=== PATIENT | male | born 1930 | race Caucasian/White ===

== ENCOUNTER 2017-06-04 11:36 | Inpatient (IN) | payer OTHER, MEDICARE ==
[~2017-06-04] VITALS: Ht 172.7 cm; Wt 70.4 kg
--- NOTE | ~2017-06-04 | EKG ---
[address] [address] ELECTROCARDIOGRAM REPORT Name: SAHARA DEVINE Room #: 432-P ADM IN M.R.#: [id number] Admission: 06/04/17 Attend Phys: Beni Winslow MD Discharge: Date of : [birth year] Report #: [id number] THIS REPORT FOR: //name// [facility] ED Test Date: 2017-06-04 Test Time: 12:02:18 Pat Name: SAHARA DEVINE Department: Room: [facility] Gender: M Epic Cadence Analyst: MARIBEL : 1930 Requested By: Aman Rebolledo Order Number: [id number] MD: Bhargav Han Measurements Intervals [place] Rate: 74 P: 9 MI: 154 QRS: 9 QRSD: 80 T: 28 QT: 381 QTc: 423 Interpretive Statements Sinus rhythm Normal tracing Compared to ECG 05/05/2005 12:46:47 Sinus bradycardia no longer present Electronically Signed On 06-05-2017 8:32:49 [employer]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
--- NOTE | ~2017-06-04 | HC ---
[facility] [place] [address] CONSULTATION Name: SAHARA DEVINE Room #: 432-P ADM IN M.R.#: [id number] Admission: 06/04/17 Attend Phys: Beni Winslow MD Discharge: Date of : [birth year] Report #: [id number] THIS REPORT FOR: //name// CC: Damon Aragon MD DATE OF SERVICE: 06/04/2017 PULMONARY CONSULTATION PRIMARY CARE PHYSICIAN: Dr. Damon Padilla. REFERRING PHYSICIAN: Dr. Winslow. REASON FOR REFERRAL: Dyspnea. HISTORY OF PRESENT ILLNESS: The patient is an 87-year-old white male who presents to the Emergency Room with generalized weakness, chills, myalgias and a cough. A pulmonary consultation was requested. The patient is followed longitudinally by Dr. Aragon. He is being followed for asthma. He was last seen in the office in February 2017. I do not have baseline PFTs. For his asthma, he is normally on Advair Diskus 500 mcg 1 puff twice a day, ProAir 2 puffs p.r.n. He is also on Zyrtec. PAST MEDICAL HISTORY: Notable for asthma as mentioned above, GERD, scarlet fever, allergic rhinitis and a chronic cough. PAST SURGICAL HISTORY: Status post cataract surgery, elbow surgery, sinus surgery, tonsillectomy, TURP for prostate cancer, vasectomy. ALLERGIES: None noted. HOME MEDICATIONS: List reviewed. Inhalers as mentioned above including Flonase, Mucinex, Zestril, Cozaar, Prilosec, Cialis. FAMILY HISTORY: Mother at the age of 79. Father at the age of 76. Mother had emphysema. SOCIAL HISTORY: He has smoked, but quit in 1950. He denies any alcohol use. REVIEW OF SYSTEMS: As mentioned above, otherwise 10-point system review negative. [facility] [address] [place] [address] CONSULTATION Name: SAHARA DEVINE [facility] Room #: [facility] IN [facility].#: [id number] Admission: 06/04/17 Attend Phys: Beni Winslow MD Discharge: Date of : [birth year] Report #: [id number] PHYSICAL EXAMINATION: He is awake, alert, in no apparent distress. Chest x-ray is unremarkable. Influenza A and B screen is negative. Procalcitonin is 1.68, normal being less than 0.5. Electrolytes are normal except for creatinine 1.5, BUN is 32, bicarb is 26. WBC 13,800, hemoglobin is 10.9, platelets are normal. IMPRESSION: 1. Probable viral syndrome. 2. Asthma exacerbation, mild. 3. Chronic kidney disease. His baseline creatinine appears to be 1.4. 4. Hypertension. RECOMMENDATION: Would treat for presumed acute bronchitis and exacerbation of asthma. Corticosteroids and bronchodilators will be recommended. Deep venous thrombosis and gastrointestinal prophylaxis will be addressed. MEDICAL DIRECTIVE: DNR. Thank you for the consultation. <ELECTRONICALLY SIGNED> By: Juarez Smith MD 06/04/17 2312 1701 [id number] Juarez Smith MD /nt
[~2017-06-04 11:36] MED LIST: ADVAIR HFA115 MCG/21 INH; ASPIRIN325 PO; CELEBREX 200 M200 M1 PO; NORCO 5-325 TA1 EACH PO; PRILOSEC 20 MG20 MG PO
[2017-06-04 11:37] VITALS: BP 122/62
[2017-06-04] MEDS ORDERED: LOSARTAN POTAS100 MG PO (11:59)
[2017-06-04 12:17] LABS: CALCIUM 8.8 mg/dL (8.5-10.1); CREATININE 1.5 mg/dL (0.7-1.3); POTASSIUM 4.4 mmol/L (3.5-5.1)
[2017-06-04 12:31] LABS: BASOPHILS 0.4 % (0.0-2.0); EOSINOPHILS 3.3 % (0.0-3.0); HEMATOCRIT 32.7 % (42.0-52.0); HEMOGLOBIN 10.9 gm/dL (14.0-18.0); LYMPHOCYTES 5.4 % (24.0-44.0); MCH 32.2 pg (26.0-34.0); MCHC 33.4 g/dL (28.0-37.0); MCV 96.3 fL (80.0-100.0); MONOCYTES 3.6 % (1.0-8.0); PLATELET COUNT 183 thou/uL (150-400); POLYS 87.3 % (36.0-66.0); RBC 3.39 mil/uL (4.50-6.00); WBC 13.8 thou/uL (4.0-11.0)
[2017-06-04] MEDS ORDERED: CIALIS20 MG PO (15:10)
[2017-06-04] MEDS ORDERED: LEXAPRO 10 MG T10 M1 PO (15:11)
[2017-06-04 15:43] LABS: PROCALCITONIN 1.68 ng/mL (<0.50)
[2017-06-04 16:22] VITALS: BP 122/62
[2017-06-04 18:35] VITALS: BP 126/56
[2017-06-05] VITALS: BP 126/56
[2017-06-05 04:00] VITALS: BP 128/30; BP 133/60
[2017-06-05 05:58] LABS: ABSOLUTE NEUTROPHILS 5.7 thou/uL (1.4-8.2); BASOPHILS 0.1 % (0.0-2.0); HEMATOCRIT 32.4 % (42.0-52.0); HEMOGLOBIN 11.1 gm/dL (14.0-18.0); LYMPHOCYTES 7.1 % (24.0-44.0); MCH 32.4 pg (26.0-34.0); MCHC 34.1 g/dL (28.0-37.0); MCV 95.1 fL (80.0-100.0); PLATELET COUNT 192 thou/uL (150-400); POLYS 91.8 % (36.0-66.0); RBC 3.41 mil/uL (4.50-6.00); RDW 14.9 % (10.5-14.5); WBC 6.2 thou/uL (4.0-11.0)
[2017-06-05 06:09] LABS: CALCIUM 8.2 mg/dL (8.5-10.1); CREATININE 1.2 mg/dL (0.7-1.3); POTASSIUM 4.6 mmol/L (3.5-5.1)
[2017-06-05 08:15] VITALS: BP 125/65
[2017-06-05 16:30] VITALS: BP 137/58
[2017-06-05 17:51] VITALS: BP 125/65
[2017-06-05 19:30] VITALS: BP 134/64
[2017-06-06 05:29] VITALS: BP 129/66
[2017-06-06 07:54] VITALS: BP 135/82
[2017-06-06] MEDS ORDERED: TAMIFLU30 MG PO (14:12)
[2017-06-06] MEDS ORDERED: MUCINEX600 MG PO (14:14)
[2017-06-06] MEDS ORDERED: LEVOFLOXACIN750 MG PO (14:16)
[2017-06-06] MEDS ORDERED: PREDNISONE 10 M10 MG PO (14:18)
[2017-06-09 23:07] LABS: ADENOVIRUS Negative (Negative); INFLUENZA A Negative (Negative); INFLUENZA B Negative (Negative); METAPNEUMOVIRUS Negative (Negative); PARAINFLUENZA 1 Negative (Negative); PARAINFLUENZA 2 Negative (Negative); PARAINFLUENZA 3 Negative (Negative); RHINOVIRUS Negative (Negative); RSV A Negative (Negative); RSV B Negative (Negative)
== END 2017-06-06 14:44 | disposition home or self-care (01) | DRG 871 ==
LOC: ER 11:36 → EROBS 13:37 → 4E 13:37
PROVIDERS: Internal Medicine Pulmonary Disease; Nurse Practitioner
DX: A41.9 Sepsis, unspecified organism (principal); J18.9 Pneumonia, unspecified organism; N17.9 Acute kidney failure, unspecified; J45.901 Unspecified asthma with (acute) exacerbation; J20.9 Acute bronchitis, unspecified; K21.9 Gastro-esophageal reflux disease without esophagitis; I12.9 Hypertensive chronic kidney disease with stage 1 through stage 4 chronic kidney disease, or unspecified chronic kidney disease; N18.9 Chronic kidney disease, unspecified; K57.90 Diverticulosis of intestine, part unspecified, without perforation or abscess without bleeding; D64.9 Anemia, unspecified; Z66 Do not resuscitate; J22 Unspecified acute lower respiratory infection; Z98.42 Cataract extraction status, left eye; Z98.41 Cataract extraction status, right eye; Z98.52 Vasectomy status; Z85.46 Personal history of malignant neoplasm of prostate; Z83.6 Family history of other diseases of the respiratory system; Z87.891 Personal history of nicotine dependence; Z86.73 Personal history of transient ischemic attack (TIA), and cerebral infarction without residual deficits; Z79.82 Long term (current) use of aspirin; Z79.899 Other long term (current) drug therapy
CPT/HCPCS: 10084